=== PATIENT | female | born 1990 | race Caucasian/White ===

== ENCOUNTER 2021-06-18 14:22 | Emergency (ER) | payer OTHER, SELFPAY ==
--- NOTE | 2021-06-18 14:28 | ED.SKABFB ---
HPI - Skin/Abscess/Foreign Bdy General Chief complaint: Skin/Abscess/Foreign Body Stated complaint: Sore on neck Time Seen by Provider: 06/18/21 14:28 Source: patient and RN notes reviewed Mode of arrival: ambulatory Limitations: no limitations History of Present Illness HPI narrative: 31-year-old female presents to the [facility] with complaints of a sore to her neck. Patient states it started 3 days ago to the left posterior neck. Had drains last night and this morning yellow-green pus. No fluctuant center area cleaned. Patient reports that it started draining last night and this morning when she got some yellow pus. Has been washing it and applying peroxide. Patient denies any past medical or history. Related Data Allergies Allergy/AdvReac Type Severity Reaction Status Date / Time No Known Allergies Allergy Verified 06/18/21 14:27 Review of Systems Review of Systems: All systems reviewed & are unremarkable except as noted in HPI and below Constitutional: Constitutional: Reports no additional constitutional complaints, Denies chills and Denies fever(s) Eyes: Eyes: Reports no additional eye complaints ENT: Reports system reviewed and no additional complaints, except as documented Cardiovascular: Cardiovascular: Reports no additional cardiovascular complaints Respiratory: Respiratory: Reports no additional respiratory complaints Gastrointestinal: Gastrointestinal: Reports no additional gastrointestinal complaints Genitourinary: Genitourinary: Reports no additional female genitourinary complaints Musculoskeletal: Musculoskeletal: Reports no additional musculoskeletal complaints Integumentary/Breasts: Skin/Breast: Reports as per HPI Neurologic: Reports system reviewed and no additional complaints, except as documented Psychiatric: Psychiatric: Reports no additional psychiatric complaints Allergic/Immunologic: Allergic/Immunologic: Reports no additional allergic/immunologic complaints PMFSH Comments At the time of my signature, I reviewed and agree with the nursing past medical, surgical, social, and family history. There is no relevant family history pertinent to the patient complaint. Exam Const: General: healthy appearing, no acute distress and alert Nutritional Appearance: well nourished Orientation/consciousness: patient oriented x3 Limitations: no limitations HENMT: Head: normal to inspection Eyes: Conjunctivae: conjunctivae normal Pupils: Equal, round and reactive pupils present Neck: Neck: normal visual inspection, no lymphadenopathy and no meningeal signs Chest: Chest palpation & inspection: normal inspection of the chest Resp: Effort & Inspection: normal respiratory effort Auscultation: clear to auscultation bilaterally Cardio: Rate: regular rate Rhythm: regular rhythm GI: GI Palp: Yes Soft to palpation and No Tenderness to palpation present (GI) : General: Yes no CVA tenderness Back/Spine/Pelvis: Back: no CVA tenderness Skin: Rashes: no rashes Full body images: 1. 2-1/2 cm x 2 and half centimeter red raised area, slightly green center, no fluctuance. Neuro: General: patient oriented x3, moves all extremities, no meningeal signs and no focal motor deficits Speech: normal speech Gait exam (Neuro): Normal gait present Extrem: General: normal to inspection Psych: Appearance: grossly normal and well kempt Mental Status: mental status grossly normal Affect: normal affect Attitude: cooperative Thought content: Yes Normal thought content present Course Course Emergency Course: Discharge instructions reviewed with patient, as well as provided in writing per nursing staff. The instructions also include specific and strict return/GO TO THE ER as well as f/u information. All questions have been answered, and the patient deny any further questions with discharge and discharge plan. Vital Signs Vital signs: Vital Signs Temperature 97.1 F L 06/18/21 14:31 Pulse Rate
[2021-06-18 14:31] VITALS: BP 113/74; PULSE 98; RESP 16; TEMP 36.2; O2SAT 100
== END 2021-06-18 14:50 | disposition home or self-care (01) ==
PROVIDERS: Emergency Provider Nurse Practitioner
DX: L02.11 Cutaneous abscess of neck (principal); L03.221 Cellulitis of neck
CPT/HCPCS: 87070; 87075; 87147; 87186; 87205; 99213; G0463

== ENCOUNTER 2021-10-24 15:16 | Emergency (ER) | payer OTHER, SELFPAY ==
--- NOTE | ~2021-10-24 | XR_ITS ---
EXAMINATION: XR chest 2V EXAM DATE: 10/24/2021 15:57 INDICATION: Sometimes prod cough x 1 month smoker TECHNIQUE: Frontal and lateral projections of the chest obtained and reviewed. There is no prior maria l dy for comparison. FINDINGS: Moderate hyperinflation. The lungs are clear. There are no pleural effusions. The cardiom ediastinal silhouette is within normal limits. There is no pneumothorax suspected. The bones and so ft tissues are unremarkable. IMPRESSION: Moderate hyperinflation. Reviewed, dictated and finalized at location A. SERVICE TECHNICIAN IMPRESSION: Moderate hyperinflation.
[2021-10-24 15:24] VITALS: BP 128/84; PULSE 97; RESP 16; TEMP 36.4; O2SAT 100
--- NOTE | 2021-10-24 15:39 | ED.URI ---
HPI - URI/Sore Throat General Chief Complaint: Upper Respiratory Infection Stated Complaint: Cough Time Seen by Provider: 10/24/21 15:39 Source: patient Mode of arrival: ambulatory Limitations: no limitations History of Present Illness HPI Narrative: 31 yo F presents with c/o cough for 1 month. Last few days having pain to L sided of chest with coughing and breathing. Pt smokes cigarettes, marijuana and vapes. Denies SOB. No recent fever. All systems reviewed and negative except as noted above. Related Data Allergies Allergy/AdvReac Type Severity Reaction Status Date / Time No Known Allergies Allergy Verified 06/18/21 14:27 Review of Systems Review of Systems: CONSTITUTIONAL: Denies fever, chills, or sweats. EYES: Denies visual changes, redness, or discharge. ENT: Denies rhinorrhea, congestion, sore throat, or otalgia. CARDIOVASCULAR: Denies chest pain, palpitations, or edema. RESPIRATORY: Reports cough, left-sided chest pain with deep breathing. GASTROINTESTINAL: Denies abdominal pain, nausea, vomiting, or diarrhea. GENITOURINARY: Denies dysuria or hematuria. SKIN: Denies rash or itching. MUSCULOSKELETAL: Denies back pain, joint pain, or myalgia. NEUROLOGIC: Denies headache, numbness, or weakness. PSYCHIATRIC: Denies anxiety or depression. All other systems reviewed are negative, except as documented in HPI. PMFSH Comments At time of signature, agree with nursing past medical, surgical, social and family history. There is no relevant family history pertinent to the presenting complaint. Exam Narrative: GENERAL: This is a well-nourished, well-developed patient, in no apparent distress. HEAD: normocephalic, atraumatic. EYES: PERRL. Sclera clear/white. Vision is grossly intact. EARS: External ears normal, auditory canals clear and without drainage, TMs normal without perforation. Hearing grossly intact. NOSE: External nose normal with no obvious nasal discharge, nares without redness, no rhinorrhea. THROAT: Mucous membranes moist, posterior pharynx clear. NECK: Neck supple, non-tender without lymphadenopathy, masses or thyromegaly. CARDIOVASCULAR: Regular rate and rhythm without murmurs, gallops, or rubs. RESPIRATORY: Wheezing to left lung vaughan. No respiratory distress. GASTROINTESTINAL: Abdomen soft, non-tender, nondistended. Bowel sounds are active. No hepato-splenomegaly, or palpable masses. No guarding. SKIN: warm, Dry, intact with no suspicious lesions or rash, good texture and turgor. NEURO: awake, alert, and oriented to person, place and time. There were no obvious focal neurologic abnormalities. EXTREMITIES: No joint tenderness, effusion, or edema noted. No calf tenderness. Negative Homans sign bilaterally. BACK: Nontender without deformity. No CVA tenderness. Course Course Emergency Course: \ Level of Care: Express Care Visit Vital Signs Vital signs: Vital Signs Temperature 36.4 C 10/24/21 15:24 Pulse Rate 97 10/24/21 15:24 Respiratory Rate 16 10/24/21 15:24 Blood Pressure 128/84 10/24/21 15:24 Pulse Oximetry 100 10/24/21 15:24 Temperature 36.4 C 10/24/21 15:24 Pulse Rate 97 10/24/21 15:24 Respiratory Rate 16 10/24/21 15:24 Blood Pressure 128/84 10/24/21 15:24 Pulse Oximetry 100 10/24/21 15:24 Reviewed MDM - URI/Sore Throat MDM Narrative Medical decision making narrative: Patient is aware of diagnosis, understands and agrees to treatment plan. Anticipatory guidance given. Patient agrees to follow-up as directed and is aware of reasons to seek care at the emergency department. Portions of this record may have been created with voice recognition software Differential Diagnosis Differential diagnosis: Likely upper respiratory infection, croup, sinusitis, bronchitis and influenza Imaging Data Attestation: I personally reviewed and interpreted this imaging study as follows: My impression: Agree with radiologist Radiologist's impression: EXAMINATION: XR chest 2V EXAM D
== END 2021-10-24 16:25 | disposition home or self-care (01) ==
PROVIDERS: Emergency Provider Nurse Practitioner Family
DX: J20.8 Acute bronchitis due to other specified organisms (principal)
CPT/HCPCS: 71046; 99213; G0463

== ENCOUNTER 2021-10-28 13:21 | Emergency (ER) | payer OTHER, SELFPAY ==
[2021-10-28 13:28] VITALS: BP 119/79; PULSE 106; RESP 16; TEMP 36.9; O2SAT 99
[2021-10-28 13:38] VITALS: BP 119/79; PULSE 106; RESP 16; TEMP 36.9; O2SAT 99
--- NOTE | 2021-10-28 14:17 | ED.SKABFB ---
HPI - Skin/Abscess/Foreign Bdy General Chief complaint: Skin/Abscess/Foreign Body Stated complaint: INFECTED HAIR FOLLICLE Time Seen by Provider: 10/28/21 14:03 Source: patient and RN notes reviewed Mode of arrival: ambulatory Limitations: no limitations History of Present Illness HPI narrative: Patient presents today complaining of a 3 to 4-day history of sore to the right scalp that is crusting. She has tried some medicated shampoo without relief. She currently rates her pain 01/26. MD complaint: lesion Related Data Allergies Allergy/AdvReac Type Severity Reaction Status Date / Time No Known Allergies Allergy Verified 10/28/21 13:44 Review of Systems Review of Systems: CONSTITUTIONAL: Denies body aches, fever, chills, or sweats. EYES: Denies visual changes, redness, or discharge. ENT: Denies rhinorrhea, congestion, sore throat, or otalgia. CARDIOVASCULAR: Denies chest pain, palpitations, or edema. RESPIRATORY: Denies cough or dyspnea. GASTROINTESTINAL: Denies abdominal pain, nausea, vomiting, or diarrhea. GENITOURINARY: Denies dysuria or hematuria. SKIN: Denies rash, itching. + Sores to right scalp MUSCULOSKELETAL: Denies back pain, joint pain, or myalgia. NEUROLOGIC: Denies headache, numbness, tingling, or weakness. PSYCH: Denies depression or anxiety. PMFSH Comments At time of signature, I have reviewed and agree with nursing past medical, surgical, social and family history unless otherwise noted. Please see nursing chart for further information. There is no relevant family history pertinent to the presenting complaint Exam Narrative: GENERAL: Well-appearing, well-nourished, and in no acute distress. HEAD: Normocephalic, atraumatic. EYES: EOMI. No redness or drainage. Conjunctivae normal. ENT: Mucous membranes pink and moist. NECK: Normal AROM. CHEST: No respiratory distress. EXTREMITIES: Normal range of motion. No edema. SKIN: Warm, dry. Capillary refill normal. Normal skin turgor. 1 cm scabbed crusting lesion to the right scalp. NEURO: No focal deficits. Alert and oriented x3. Gait steady. PSYCH: Normal affect. No signs of depression or anxiety. Course Course Emergency Course: Crusting scab was removed from the scalp and purulent discharge was expressed from the abscess. Level of Care: Express Care Visit Vital Signs Vital signs: Vital Signs Temperature 98.5 F 10/28/21 13:28 Pulse Rate 106 H 10/28/21 13:28 Respiratory Rate 16 10/28/21 13:28 Blood Pressure 119/79 10/28/21 13:28 Pulse Oximetry 99 10/28/21 13:28 Temperature 98.5 F 10/28/21 13:38 Pulse Rate 106 H 10/28/21 13:38 Respiratory Rate 16 10/28/21 13:38 Blood Pressure 119/79 10/28/21 13:38 Pulse Oximetry 99 10/28/21 13:38 Reviewed Procedures Abscess I/D scalp: Date of Incision: 10/28/21 Time of Incision: 14:17 Side (if applicable): right (Scalp) Local Anesthetic: none Technique: other (Large scab removed with forceps) Irrigation: No Packing used?: none I&D Results: Pus and Blood MDM - Skin/Abscess/Foreign Bdy Differential Diagnosis Differential diagnosis: Likely abscess of skin or subcutaneous tissue, cellulitis, eczema, impetigo and contact dermatitis Critical Care Time Critical Care Time Critical Care Time: No Discharge Plan Discharge Clinical Impression: Abscess of scalp Patient Disposition: Home, Self-Care Condition: Stable Instructions: Abscess (ED) Additional Instructions: The scab was removed from your abscess and the pus was drained. Continue to apply warm compresses to facilitate drainage. Take Tylenol or ibuprofen for pain. Take the Bactrim as prescribed until gone. Follow-up with your PCP with any concerns. Patient Language: Albanian Prescriptions: New sulfamethoxazole-trimethoprim [Bactrim DS] 800-160 mg tablet 1 tablet PO Q12H 10 Days Qty: 20 RF: 0 No Action methylprednisolone [Medrol (Vidal)] 4 mg tab
== END 2021-10-28 14:25 | disposition home or self-care (01) ==
PROVIDERS: Emergency Provider Nurse Practitioner
DX: L02.811 Cutaneous abscess of head [any part, except face] (principal)
CPT/HCPCS: 99213; G0463

== ENCOUNTER 2022-04-28 09:48 | Emergency (ER) | payer OTHER, SELFPAY ==
[2022-04-28] VITALS (8 sets, daily range): BP systolic 128–139; BP diastolic 83–94; PULSE 87–119; RESP 14–20; TEMP 36.6; O2SAT 92–96
--- NOTE | ~2022-04-28 | XR_ITS ---
XR chest 2V DATE: 04/28/2022 11:16 INDICATION: Shortness of breath TECHNIQUE: PA and lateral views COMPARISON: None FINDINGS: Moderate bilateral hyperinflation. No pulmonary infiltrate or consolidation, pleural effusi on or pulmonary vascular congestion or pneumothorax. Normal heart size. No hilar or mediastinal enlar gement. Included skeletal structures are unremarkable. IMPRESSION: Moderate hyperinflation Reviewed, dictated and finalized at location A. IMPRESSION: Moderate hyperinflation
--- NOTE | 2022-04-28 10:19 | ECG_ITS ---
Measurements Intervals [place] Rate: 94 P: 78 IN: 151 QRS: 77 QRSD: 94 T: 61 QT: 346 QTc: 434 Interpretive Statements SINUS RHYTHM WITH SINUS ARRHYTHMIA NORMAL ECG NO PREVIOUS ECG AVAILABLE FOR COMPARISON Electronically Signed On 04-28-2022 14:48:42 CDT by Jd Marmolejo D.O.
[2022-04-28 11:32] LABS: Basophils Absolute Auto 0.1 K/mm3 (0.0-0.1); Eosinophils Absolute Auto 1.2 K/mm3 (0-0.3); Eosinophils Percent Auto 8.7 % (0-4.4); Hematocrit 36.4 % (37.0-47.0); Hemoglobin 10.7 g/dL (12.0-15.0); Immature Granulocyte Absolute 0.04 K/mm3 (0.00-0.031); Immature Granulocyte Percent A 0.3 % (0-0.5); Lymphocytes Absolute Auto 1.81 K/mm3 (0.9-3.2); Lymphocytes Percent Auto 13.5 % (18.3-44.2); Mean Corpuscular HGB Conc 29.4 g/dl (32-36); Mean Corpuscular Hemoglobin 22.2 pg (26-34); Mean Corpuscular Volume 75.4 fl (80-100); Mean Platelet Volume 9.5 fl (7.4-10.4); Monocytes Absolute Auto 0.7 K/mm3 (0.1-0.6); Monocytes Percent Auto 5.4 % (2.6-8.5); Neutrophils Absolute Auto 9.5 K/mm3 (1.3-6.7); Neutrophils Percent Auto 71.1 % (45.5-73.1); Platelet Count Result 316 k/mm3 (150-375); Red Blood Count 4.83 M/mm3 (4.2-5.4); Red Cell Distribution Width 17.6 % (11.5-14.5); White Blood Count 13.4 K/mm3 (4.5-10.0)
--- NOTE | 2022-04-28 11:33 | ED.SOB ---
HPI - SOB/Dyspnea General Chief Complaint: Shortness of Breath/Dyspnea Stated Complaint: cough, short of breath, wheezing Time Seen by Provider: 04/28/22 11:29 Source: patient Mode of arrival: ambulatory Limitations: no limitations History of Present Illness HPI Narrative: This is a 32 year old female that presents to the ER for worsening shortness of breath since yesterday. Associated with wheezing. Reports she recently had bronchitis and does not feel she fully recovered. She does have a mild persisting cough. Denies fevers. Related Data Allergies Allergy/AdvReac Type Severity Reaction Status Date / Time No Known Allergies Allergy Verified 04/28/22 11:13 Review of Systems Review of Systems: CONSTITUTIONAL: Denies fever CARDIOVASCULAR: Denies chest pain, or edema. RESPIRATORY: Reports cough and dyspnea. All systems reviewed & are unremarkable except as noted in HPI and below PMFSH Past Medical History Medical History (Updated 04/28/22 @ 13:41 by Payton Martínez PA-C) History of drug abuse Social History Social History (Updated 04/28/22 @ 11:35 by Payton Martínez PA-C) Smoking status: Current every day smoker Substance use: current Exam Narrative: GENERAL: Well-appearing, well-nourished, and in no acute distress. HEAD: Normocephalic, atraumatic. EYES: EOMI. ENT: Nares clear, no rhinorrhea or epistaxis. Mucous membranes moist. Oropharynx without tonsillar hypertrophy exudate or other lesions. Bilateral TMs pearly rios non-bulging NECK: Supple. No adenopathy or masses. CHEST: No respiratory distress. Mild scattered wheezes. No rales or rhonchi HEART: Regular rate and rhythm. No murmur heard. Normal peripheral pulses. EXTREMITIES: Normal range of motion. No edema. SKIN: Warm, dry, no rash. NEURO: No focal deficits. Alert and oriented x3. PSYCH: Normal mood and affect Course Vital Signs Vital signs: Vital Signs Temperature 97.9 F 04/28/22 09:54 Pulse Rate 119 H 04/28/22 09:54 Respiratory Rate 14 04/28/22 09:54 Blood Pressure 139/94 H 04/28/22 09:54 Pulse Oximetry 92 04/28/22 09:54 Oxygen Delivery Room Air 04/28/22 09:54 Temperature 97.9 F 04/28/22 09:54 Pulse Rate 87 04/28/22 11:51 Respiratory Rate 18 04/28/22 11:51 Blood Pressure 128/83 04/28/22 11:28 Pulse Oximetry 96 04/28/22 12:26 Oxygen Delivery Room Air 04/28/22 12:26 MDM - SOB/Dyspnea MDM Narrative Medical decision making narrative: Patient presents to the emergency department for shortness of breath and wheezing. Ongoing over the last couple of days. Patient is afebrile and nontoxic-appearing. Oxygen saturation has remained normal on room air. Patient was tachycardic upon arrival, this normalized with a nebulizer treatment. CBC with leukocytosis to 13.4. Also shows microcytic anemia with hemoglobin of 10.7. Metabolic panel without concerning findings. Influenza and COVID screens are negative. Chest x-ray without acute cardiopulmonary abnormality. EKG without concerning changes. Patient and family updated on case findings. She reports relief with a nebulizer treatment. Will be given prescription for albuterol inhaler as needed. She is to follow-up with her primary care doctor. She was given warnings to return to the ER Lab Data Attestation: I reviewed the patient's lab results. Result diagrams: 04/28/22 11:21 04/28/22 11:21 Labs: Lab Results 04/28/22 04/28/22 04/28/22 Range/Units 11:21 11:21 11:38 WBC 13.4 H (4.5-10.0) K/mm3 RBC 4.83 (4.2-5.4) M/mm3 Hgb 10.7 L (12.0-15.0) g/dL Hct 36.4 L (37.0-47.0) % MCV 75.4 L (80-100) fl MCH 22.2 L (26-34) pg MCHC 29.4 L (32-36) g/dl RDW 17.6 H (11.5-14.5) % Plt Count 316 (150-375) k/mm3 MPV 9.5 (7.4-10.4) fl Immature Gran % (Auto) 0.3 (0-0.5) % Neut % (Auto) 71.1 (45.5-73.1) % Lymph % (Auto) 13.5 L (18.3-44.2) % [place] % (Auto) 5.4 (2.
[2022-04-28 11:41] LABS: Anion Gap 12 mmol/L (8-16); Blood Urea Nitrogen 7 mg/dL (7-17); Calcium 8.4 mg/dL (8.4-10.2); Carbon Dioxide 28 mmol/L (22-30); Chloride 101 mmol/L (98-107); Estimated CRCL calculation 95 ml/min; Estimated Glomerular Filt Rate > 60; Glucose 90 mg/dL (65-110); Potassium 4.4 mmol/L (3.4-5.0); Sodium 141 mmol/L (137-145)
[2022-04-28] MEDS: ALBUTEROL SULFATE NEB 2.5 MG/3 ML INH 5 MG INHALATION (11:47)
[2022-04-28] MEDS: IPRATROPIUM BR 0.02% INH SOLN 0.5 MG/2.5 ML VIAL INHALATION (11:47)
[2022-04-28 11:53] LABS: Anisocytosis 1+ (NORMAL); Hypochromasia 2+ (NORMAL); Microcytosis 1+ (NORMAL); Platelet Estimate Adequate (Adequate)
[2022-04-28 12:25] LABS: Influenza A QL RT-PCR Negative (Negative); Influenza B QL RT-PCR Negative (Negative); SARS-CoV-2 RNA PCR Negative
== END 2022-04-28 13:59 | disposition home or self-care (01) ==
PROVIDERS: Physician Assistant; Emergency Provider Emergency Medicine
DX: J20.9 Acute bronchitis, unspecified (principal); Z20.822 Contact with and (suspected) exposure to COVID-19; F17.200 Nicotine dependence, unspecified, uncomplicated
CPT/HCPCS: 36415; 71046; 80048; 85025; 87502; 93005; 94640; 99284; C9803; U0003; U0005

== ENCOUNTER 2022-06-06 10:29 | Emergency (ER) | payer OTHER, SELFPAY ==
[2022-06-06 10:37] VITALS: BP 121/76; PULSE 99; RESP 16; TEMP 36.6; O2SAT 100
--- NOTE | 2022-06-06 11:52 | ED.URI ---
HPI - URI/Sore Throat General Chief Complaint: Upper Respiratory Infection Stated Complaint: cough Time Seen by Provider: 06/06/22 11:41 Source: patient Mode of arrival: ambulatory Limitations: no limitations History of Present Illness HPI Narrative: Patient presents today with a 2-week history of cough with clear/white sputum and shortness of breath with exertion. Patient does smoke. She has been using an [id number] inhaler with mild relief as well as Robitussin with some relief. Related Data Allergies Allergy/AdvReac Type Severity Reaction Status Date / Time No Known Allergies Allergy Verified 04/28/22 11:13 Review of Systems Review of Systems: CONSTITUTIONAL: Denies body aches, fever, chills, or sweats. EYES: Denies visual changes, redness, or discharge. ENT: Denies rhinorrhea, congestion, sore throat, or otalgia. CARDIOVASCULAR: Denies chest pain, palpitations, or edema. RESPIRATORY: + Cough, shortness of breath with exertion GASTROINTESTINAL: Denies abdominal pain, nausea, vomiting, or diarrhea. GENITOURINARY: Denies dysuria or hematuria. SKIN: Denies rash, itching, or wounds. MUSCULOSKELETAL: Denies back pain, joint pain, or myalgia. NEUROLOGIC: Denies headache, numbness, tingling, or weakness. PSYCH: Denies depression or anxiety. [facility] Past Medical History Medical History History of drug abuse Social History Social History Smoking status: Current every day smoker Substance use: current Comments At time of signature, I have reviewed and agree with nursing past medical, surgical, social and family history unless otherwise noted. Please see nursing chart for further information. There is no relevant family history pertinent to the presenting complaint Exam Narrative: GENERAL: Well-appearing, well-nourished, and in no acute distress. HEAD: Normocephalic, atraumatic. EYES: EOMI. No redness or drainage. Conjunctivae normal. ENT: Mucous membranes pink and moist. Nares clear. No rhinorrhea. TMs normal bilaterally. Throat normal. Uvula midline. NECK: Normal AROM. Supple. No lymphadenopathy. CHEST: No respiratory distress. + Expiratory wheezing throughout, otherwise clear HEART: Regular rate and rhythm. No murmur appreciated. Normal peripheral pulses. EXTREMITIES: Normal range of motion. No edema. SKIN: Warm, dry, no rash. Capillary refill normal. Normal skin turgor. NEURO: No focal deficits. Alert and oriented x3. Gait steady. PSYCH: Normal affect. No signs of depression or anxiety. Course Course Level of Care: Express Care Visit Vital Signs Vital signs: Vital Signs Temperature 97.8 F 06/06/22 10:37 Pulse Rate 99 06/06/22 10:37 Respiratory Rate 16 06/06/22 10:37 Blood Pressure 121/76 06/06/22 10:37 Pulse Oximetry 100 06/06/22 10:37 Oxygen Delivery Room Air 06/06/22 10:37 Temperature 97.8 F 06/06/22 10:37 Pulse Rate 99 06/06/22 10:37 Respiratory Rate 16 06/06/22 10:37 Blood Pressure 121/76 06/06/22 10:37 Pulse Oximetry 100 06/06/22 10:37 Oxygen Delivery Room Air 06/06/22 10:37 Reviewed. Pt has been instructed to follow up with her PCP regarding her elevated blood pressure today. MDM - URI/Sore Throat Differential Diagnosis Differential diagnosis: Likely upper respiratory infection, viral infection and bronchitis Critical Care Time Critical Care Time Critical Care Time: No Discharge Plan Discharge Clinical Impression: Bronchitis Patient Disposition: Home, Self-Care Condition: Stable Instructions: Acute Bronchitis (ED) Additional Instructions: Please take the prednisone and use the albuterol inhaler as directed. Follow-up with the PCP to initiate care. Go to the ER immediately if your symptoms worsen. Your blood pressure was elevated above 120/80 today at Urgent Care. This puts you above the thresho
== END 2022-06-06 12:04 | disposition home or self-care (01) ==
PROVIDERS: Emergency Provider Nurse Practitioner
DX: J40 Bronchitis, not specified as acute or chronic (principal); F17.200 Nicotine dependence, unspecified, uncomplicated
CPT/HCPCS: 99213; G0463

== ENCOUNTER 2022-08-15 10:28 | Emergency (ER) | payer OTHER, SELFPAY ==
[2022-08-15 10:44] VITALS: BP 145/89; PULSE 90; RESP 16; TEMP 36.6; O2SAT 99
--- NOTE | 2022-08-15 10:51 | ED.URI ---
HPI - URI/Sore Throat General Stated Complaint: sob Time Seen by Provider: 08/15/22 10:45 Source: patient Mode of arrival: ambulatory Limitations: no limitations History of Present Illness HPI Narrative: Ms. Reid is a 32-year-old female patient presenting to the clinic today with complaints cough, shortness of breath, wheezing x3 months. She reports that she has a history of bronchitis and asthma. MD elicited complaint: cough and other ( Wheezing, shortness of breath) Related Data Allergies Allergy/AdvReac Type Severity Reaction Status Date / Time No Known Allergies Allergy Verified 04/28/22 11:13 Review of Systems Review of Systems: Pertinent positives per HPI. Patient denies any fever, chills, rash, headache, visual changes, dizziness, chest pain, palpitations, nausea, vomiting, diarrhea, constipation, abdominal pain, or any urinary issues. [facility] Past Medical History Medical History History of drug abuse Social History Social History Smoking status: Current every day smoker Substance use: current Comments At the time of my signature, I reviewed and agree with the nursing past medical, surgical, social, and family history. There is no relevant family history pertinent to the patient complaint. Exam Narrative: General: Well-developed, well nourished, in no apparent distress Head: Normocephalic, atraumatic Eyes: Pupils equally round and reactive to light bilaterally, EOM intact, sclera and conjunctive clear, no discharge, lids normal Ears: TMs intact and clear, ear canals clear, no drainage, grossly hearing normal. Nose: Nares patent, clear nasal discharge, no inflammation, no sinus tenderness. Mouth: Oral pharynx without lesions or masses, good dentition, MMM. Neck: Supple, trachea midline, no enlargement of anterior or posterior cervical nodes, no thyroid masses or goiter palpable. Cardio: Regular rate and rhythm, s1 and s2 normal, no murmur appreciated. Resp: Expiratory wheezing over the left lung vaughan, no rhonchi, rales, or rubs Course Course Emergency Course: Portions of this record may have been created with voice recognition software. Level of Care: Express Care Visit Vital Signs Vital signs: Vital Signs Temperature 36.6 C 08/15/22 10:44 Pulse Rate 90 08/15/22 10:44 Respiratory Rate 16 08/15/22 10:44 Blood Pressure 145/89 H 08/15/22 10:44 Pulse Oximetry 99 08/15/22 10:44 Oxygen Delivery Room Air 08/15/22 10:44 Temperature 36.6 C 08/15/22 10:44 Pulse Rate 90 08/15/22 10:44 Respiratory Rate 16 08/15/22 10:44 Blood Pressure 145/89 H 08/15/22 10:44 Pulse Oximetry 99 08/15/22 10:44 Oxygen Delivery Room Air 08/15/22 10:44 Vital signs reviewed MDM - URI/Sore Throat MDM Narrative Medical decision making narrative: at the time of visit patient is resting comfortably on the exam table. I suspect patient has bronchitis. Prescription for azithromycin, albuterol inhaler, and prednisone was sent to the pharmacy. Supportive measures were discussed with the patient she voiced understanding discharge instructions agrees to treatment plan Differential Diagnosis Differential diagnosis: Likely upper respiratory infection, otitis media, sinusitis, viral infection, bronchitis, influenza, pharyngitis and other ( COVID) Discharge Plan Discharge Clinical Impression: Bronchitis Patient Disposition: Home, Self-Care Condition: Stable Instructions: Antibiotic Form, Acute Bronchitis (ED) Additional Instructions: Take prescription medications only as prescribed- prednisone, albuterol inhaler, and azithromycin Stop smoking/vaping Increase fluids and stay well hydrated Tylenol/motrin for pain/fever Flonase and OTC antihistamines as directed Vicks vapor rub to open sinuses Sinus rinses for congestion Cepacol spray,
== END 2022-08-15 10:59 | disposition home or self-care (01) ==
PROVIDERS: Emergency Provider Nurse Practitioner Family
DX: J40 Bronchitis, not specified as acute or chronic (principal); F17.210 Nicotine dependence, cigarettes, uncomplicated
CPT/HCPCS: 99213; G0463

== ENCOUNTER 2022-09-16 11:39 | Emergency (ER) | payer OTHER, SELFPAY ==
[2022-09-16 11:47] VITALS: BP 158/126; PULSE 122; RESP 16; TEMP 36.6; O2SAT 93
--- NOTE | 2022-09-16 11:51 | ED.URI ---
HPI - URI/Sore Throat General Chief Complaint: Upper Respiratory Infection Stated Complaint: cough Time Seen by Provider: 09/16/22 11:53 Source: patient, RN notes reviewed and old records reviewed Mode of arrival: ambulatory Limitations: no limitations History of Present Illness HPI Narrative: 32-year-old female presents to the [facility] with complaints of cough, shortness of breath and wheezing. Lost her inhaler. Has a history of bronchitis and continues to smoke. Does not have a primary care provider. Denies any chest pain or abdominal pain. Denies fevers Related Data Allergies Allergy/AdvReac Type Severity Reaction Status Date / Time No Known Allergies Allergy Verified 09/16/22 11:45 Review of Systems Review of Systems: All systems reviewed & are unremarkable except as noted in HPI and below Constitutional: Constitutional: Reports no additional constitutional complaints Eyes: Eyes: Reports no additional eye complaints ENT: Reports system reviewed and no additional complaints, except as documented Cardiovascular: Cardiovascular: Reports no additional cardiovascular complaints, Denies chest pain and Denies dyspnea Respiratory: Respiratory: Reports as per HPI, Denies chest congestion, Reports cough, Reports dyspnea and Reports wheezing Gastrointestinal: Gastrointestinal: Reports no additional gastrointestinal complaints, Denies abdominal pain, Denies nausea and Denies vomiting Musculoskeletal: Musculoskeletal: Reports no additional musculoskeletal complaints Integumentary/Breasts: Skin/Breast: Reports system reviewed and no additional complaints, except as docu Neurologic: Reports system reviewed and no additional complaints, except as documented Psychiatric: Psychiatric: Reports no additional psychiatric complaints Allergic/Immunologic: Allergic/Immunologic: Reports no additional allergic/immunologic complaints PMFSH Past Medical History Medical History History of drug abuse Social History Social History Smoking status: Current every day smoker Substance use: current Comments At the time of my signature, I reviewed and agree with the nursing past medical, surgical, social, and family history. There is no relevant family history pertinent to the patient complaint. Exam Const: General: cooperative, comfortable, well developed, alert, acute distress mild (Respiratory), ill appearing acutely (mild), uncomfortable and well nourished Nutritional Appearance: well nourished Orientation/consciousness: patient oriented x3 Limitations: no limitations HENMT: Head: normal to inspection Ears: hearing grossly normal bilaterally and external ears normal Face/Nose/Sinus: Normal external nose present, Normal nares present, Normal nasal mucous membranes and turbinates present and normal facial exam Face and sinus: normal facial exam Mouth: Yes Normal oral and palatal mucosa present, Yes lip normal and Yes moist mucous membranes Throat: posterior oropharynx normal and uvula midline Eyes: General: appearance normal, both eyes and all related structures Alignment and Position: alignment normal Periorbital: periorbital findings normal Conjunctivae: conjunctivae normal Pupils: Equal, round and reactive pupils present EOM: EOMs intact bilaterally Neck: Neck: normal visual inspection, full ROM, no lymphadenopathy and no meningeal signs Chest: Chest palpation & inspection: normal inspection of the chest Resp: Effort & Inspection: normal respiratory effort and able to speak in complete sentences Auscultation: no crackles, no rales, no rhonchi and wheezes expiratory wheezes, inspiratory wheezes and throughout Cardio: Rate: tachycardic Rhythm: regular rhythm Back/Spine/Pelvis: Cervical Spine: cervical ROM normal Thoracic/Lumbar Spine: No thoracic spinal tenderness Skin: General skin exam: normal color and n
[2022-09-16] MEDS: predniSONE 20 MG TABLET 40 MG PO (11:59)
[2022-09-16] MEDS: IPRATROPIUM BR 0.02% INH SOLN 0.5 MG/2.5 ML VIAL INHALATION (12:00)
--- NOTE | 2022-09-16 12:01 | PC.NURSE ---
scanner did not work with albuterol. verified and acknowledged manually.
== END 2022-09-16 12:51 | disposition home or self-care (01) ==
PROVIDERS: Emergency Provider Nurse Practitioner
DX: J40 Bronchitis, not specified as acute or chronic (principal); F17.200 Nicotine dependence, unspecified, uncomplicated
CPT/HCPCS: 99213; G0463; J7512

== ENCOUNTER 2022-10-03 09:46 | Emergency (ER) | payer OTHER, SELFPAY ==
[2022-10-03 09:48] VITALS: BP 131/90; PULSE 86; RESP 18; TEMP 36.8; O2SAT 100
--- NOTE | 2022-10-03 10:09 | ED.RECABL ---
HPI - Recheck/Abnormal Lab/Rx General Chief Complaint: Recheck/Abnormal Lab/Rx Stated Complaint: lost my inhaler Time Seen by Provider: 10/03/22 10:09 Source: patient Mode of arrival: ambulatory Limitations: no limitations History of Present Illness HPI narrative: This is a 32-year-old female that presents to the emergency department for medication refill. Reports she has been having trouble with flares of bronchitis over the last year. She recently finished an oral steroid for this. She has misplaced her albuterol inhaler which prompted her to be seen today. Reports she does have an appointment with a lung specialist, but this is not for several weeks. Would like a prescription for albuterol daytime. Denies fever, productive cough, or current shortness of breath. Related Data Allergies Allergy/AdvReac Type Severity Reaction Status Date / Time No Known Allergies Allergy Verified 09/16/22 11:45 Review of Systems Review of Systems: CONSTITUTIONAL: Denies fever RESPIRATORY: Denies cough or dyspnea. All systems reviewed & are unremarkable except as noted in HPI and below PMFSH Past Medical History Medical History History of drug abuse Social History Social History Smoking status: Current every day smoker Substance use: current Exam Narrative: GENERAL: Well-appearing, well-nourished, and in no acute distress. HEAD: Normocephalic, atraumatic. EYES: EOMI. CHEST: No respiratory distress. Very mild, scattered expiratory wheezes. No rales or rhonchi HEART: Regular rate and rhythm. No murmur heard. Normal peripheral pulses. EXTREMITIES: Normal range of motion. No edema. SKIN: Warm, dry, no rash. NEURO: No focal deficits. Alert and oriented x3. PSYCH: Normal mood and affect Course Vital Signs Vital signs: Vital Signs Temperature 98.2 F 10/03/22 09:48 Pulse Rate 86 10/03/22 09:48 Respiratory Rate 18 10/03/22 09:48 Blood Pressure 131/90 10/03/22 09:48 Pulse Oximetry 100 10/03/22 09:48 Oxygen Delivery Room Air 10/03/22 09:48 Temperature 98.2 F 10/03/22 09:48 Pulse Rate 86 02/15/23 09:48 Respiratory Rate 18 10/03/22 09:48 Blood Pressure 131/90 10/03/22 09:48 Pulse Oximetry 100 10/03/22 09:48 Oxygen Delivery Room Air 10/03/22 09:48 MDM - Recheck/Abnormal Lab/Rx MDM Narrative Medical decision making narrative: Patient presents to the emergency department for a medication refill. Oxygen saturation is 100% on room air. She is afebrile and nontoxic-appearing. Denies any productive cough. She has very mild, scattered wheezes on exam. Will be given refill for her albuterol inhaler and instructed to follow-up with her construction carpenter as scheduled. She was given warnings to return to the ER Differential Diagnosis Differential diagnosis: Likely encounter for medication refill Critical Care Time Critical Care Time Critical Care Time: No Discharge Plan Discharge Clinical Impression: Encounter for medication refill Patient Disposition: Home, Self-Care Condition: Stable Instructions: How to Stop Smoking (ED), Wheezing (ED) Additional Instructions: Return to the emergency department for fever, cough, shortness of breath, or any other concerns Albuterol 2 puffs every 4-6 hours as needed for shortness of breath or wheezing Follow up with the lung doctor as you have scheduled Prescriptions: No Action albuterol sulfate 90 mcg/actuation HFA aerosol inhaler 2 puff inhalation QID PRN (Reason: shortness of breath or wheezing) Qty: 6.7 0RF prednisone 20 mg tablet See Rx Instructions .Route .COMPLEX Qty: 9 0RF Rx Instructions: Take 40 mg daily for 3 days, 20 mg daily for 3 days albuterol sulfate 90 mcg/actuation HFA aerosol inhaler 2 puff inhalation Q4-6H PRN (Reason: shortness of breath or wheezing) 30 Days Qty: 8.5 0RF Foll
== END 2022-10-03 10:22 | disposition home or self-care (01) ==
PROVIDERS: Emergency Provider Physician Assistant
DX: J40 Bronchitis, not specified as acute or chronic (principal); F17.200 Nicotine dependence, unspecified, uncomplicated
CPT/HCPCS: 99281

== ENCOUNTER 2022-11-09 08:59 | Emergency (ER) | payer OTHER, SELFPAY ==
[2022-11-09 09:14] VITALS: BP 147/116; PULSE 115; RESP 16; TEMP 36.8; O2SAT 98
--- NOTE | 2022-11-09 09:30 | ED.URI ---
HPI - URI/Sore Throat General Chief Complaint: Upper Respiratory Infection Stated Complaint: pain and blockage in left ear; dyspnea, bronchitis Time Seen by Provider: 11/09/22 09:30 Source: patient Mode of arrival: ambulatory Limitations: no limitations History of Present Illness HPI Narrative: 32-year-old female presents with complaint of cough, wheezing and chest tightness. Patient reports history of similar episodes the past year and half since having COVID. Patient has had a chest x-ray in the past normal. She states that she has been coming here for breathing treatments and albuterol inhalers. She does not a primary care doctor. States that her boyfriend made her an appointment with a esthetic dermatologist for the end of November but she does the name of the physician. She is speaking in full sentences. No respiratory distress. States that she uses albuterol inhaler every day. Patient or also reports left ear pain for 1 week. States left ear pain has been constant, not getting better but no worsening of pain. Afebrile. All systems reviewed and negative except as noted above. Related Data Allergies Allergy/AdvReac Type Severity Reaction Status Date / Time No Known Allergies Allergy Verified 11/09/22 09:18 Review of Systems Review of Systems: CONSTITUTIONAL: Denies fever, chills, or sweats. EYES: Denies visual changes, redness, or discharge. ENT: Denies rhinorrhea, congestion, sore throat . Reports left ear pain. CARDIOVASCULAR: Denies chest pain, palpitations, or edema. RESPIRATORY: Reports cough, wheezing and dyspnea on exertion. GASTROINTESTINAL: Denies abdominal pain, nausea, vomiting, or diarrhea. GENITOURINARY: Denies dysuria or hematuria. SKIN: Denies rash or itching. MUSCULOSKELETAL: Denies back pain, joint pain, or myalgia. NEUROLOGIC: Denies headache, numbness, or weakness. PSYCHIATRIC: Denies anxiety or depression. All other systems reviewed are negative, except as documented in HPI. [facility] Past Medical History Medical History History of drug abuse Social History Social History Smoking status: Current every day smoker Substance use: current Comments At time of signature, agree with nursing past medical, surgical, social and family history. There is no relevant family history pertinent to the presenting complaint. Exam Narrative: GENERAL: This is a well-nourished, well-developed patient, in no apparent distress. HEAD: normocephalic, atraumatic. EYES: PERRL. Sclera clear/white. Vision is grossly intact. EARS: External ears normal, auditory canals clear and without drainage, right TM normal. unable to evaluate left TM due to hard laxity noted. NOSE: External nose normal with no obvious nasal discharge, nares without redness, no rhinorrhea. THROAT: Mucous membranes moist, posterior pharynx clear. NECK: Neck supple, non-tender without lymphadenopathy, masses or thyromegaly. CARDIOVASCULAR: Regular rate and rhythm without murmurs, gallops, or rubs. RESPIRATORY: wheezing on expiration throughout all lung vaughan. No rales, or rhonchi. SKIN: warm, Dry, intact with no suspicious lesions or rash, good texture and turgor. NEURO: awake, alert, and oriented to person, place and time. There were no obvious focal neurologic abnormalities. EXTREMITIES: No joint tenderness, effusion, or edema noted. Course Course Level of Care: Express Care Visit Reevaluation(s) Reevaluation #1: lungs clear auscultation on improving. Patient reports chest tightness resolved. Vital Signs Vital signs: Vital Signs Temperature 36.8 C 11/09/22 09:14 Pulse Rate 115 H 11/09/22 09:14 Respiratory Rate 16 11/09/22 09:14 Blood Pressure 147/116 H 11/09/22 09:14 Pulse Oximetry 98 11/09/22 09:14 Oxygen Delivery Room Air 11/09/22 09:14 Temperature 36.8 C 11/09/22 09:14 Pulse Rate 115 H 11/09
[2022-11-09] MEDS: IPRATROPIUM BR 0.02% INH SOLN 0.5 MG/2.5 ML VIAL INHALATION (09:46)
[2022-11-09] MEDS: predniSONE 20 MG TABLET 40 MG PO (09:46)
[2022-11-09] MEDS: ALBUTEROL SULFATE NEB 2.5 MG/3 ML INH INHALATION (09:47)
== END 2022-11-09 10:35 | disposition home or self-care (01) ==
PROVIDERS: Emergency Provider Nurse Practitioner Family
DX: J45.901 Unspecified asthma with (acute) exacerbation (principal); H61.22 Impacted cerumen, left ear; F17.200 Nicotine dependence, unspecified, uncomplicated
CPT/HCPCS: 94640; 99213; G0463; J7512

== ENCOUNTER 2023-01-07 08:05 | Emergency (ER) | payer OTHER, SELFPAY ==
--- NOTE | 2023-01-07 08:09 | ED.GENADULT ---
HPI - General Adult General Chief complaint: Asthma Stated complaint: Asthma Time Seen by Provider: 01/07/23 08:10 Source: patient, RN notes reviewed and old records reviewed Mode of arrival: ambulatory Limitations: no limitations History of Present Illness HPI narrative: 32-year-old female presents to the [facility] with coughing and wheezing. Symptoms started last night. Denies fevers, chest pain. No abdominal pain. Patient states that her appointment with a grain elevator worker in November was canceled due to insurance issues. Reports that she has an appointment in January with a grain elevator worker. Currently does not have a primary care provider. Reports since COVID she has had breathing issues. Currently a smoker Onset (ago): hour(s) (12) Severity: mild Associated symptoms: cough Treatments prior to arrival: none Related Data Allergies Allergy/AdvReac Type Severity Reaction Status Date / Time No Known Allergies Allergy Verified 01/07/23 08:16 Review of Systems Review of Systems: All systems reviewed & are unremarkable except as noted in HPI and below Constitutional: Constitutional: Reports no additional constitutional complaints Eyes: Eyes: Reports no additional eye complaints ENT: Reports system reviewed and no additional complaints, except as documented Cardiovascular: Cardiovascular: Reports no additional cardiovascular complaints, Denies chest pain and Denies dyspnea Respiratory: Respiratory: Reports as per HPI, Denies chest congestion, Reports cough and Reports dyspnea Gastrointestinal: Gastrointestinal: Reports no additional gastrointestinal complaints, Denies abdominal pain, Denies nausea and Denies vomiting Musculoskeletal: Musculoskeletal: Reports no additional musculoskeletal complaints Integumentary/Breasts: Skin/Breast: Reports system reviewed and no additional complaints, except as docu Neurologic: Reports system reviewed and no additional complaints, except as documented Psychiatric: Psychiatric: Reports no additional psychiatric complaints Allergic/Immunologic: Allergic/Immunologic: Reports no additional allergic/immunologic complaints [facility] Past Medical History Medical History History of drug abuse Social History Social History Smoking status: Current every day smoker Substance use: current Comments At the time of my signature, I reviewed and agree with the nursing past medical, surgical, social, and family history. There is no relevant family history pertinent to the patient complaint. Exam Const: General: cooperative, healthy appearing, comfortable, no acute distress, well developed, alert and well nourished Nutritional Appearance: well nourished Orientation/consciousness: patient oriented x3 Limitations: no limitations HENMT: Head: normal to inspection Ears: hearing grossly normal bilaterally and external ears normal Face/Nose/Sinus: Normal external nose present, Normal nares present, Normal nasal mucous membranes and turbinates present and normal facial exam Face and sinus: normal facial exam Mouth: Yes Normal oral and palatal mucosa present, Yes lip normal and Yes moist mucous membranes Throat: posterior oropharynx normal and uvula midline Eyes: General: appearance normal, both eyes and all related structures Alignment and Position: alignment normal Periorbital: periorbital findings normal Pupils: Equal, round and reactive pupils present EOM: EOMs intact bilaterally Neck: Neck: normal visual inspection, full ROM, no lymphadenopathy and no meningeal signs Chest: Chest palpation & inspection: normal inspection of the chest Resp: Effort & Inspection: normal respiratory effort and able to speak in complete sentences Auscultation: no crackles, no rales, no rhonchi, wheezes (left lower) and diminished lung sounds bilateral throughout Cardio: Rate: regular rate Rhythm: regular rhyt
[2023-01-07 08:13] VITALS: BP 153/109; PULSE 105; RESP 18; TEMP 36.6; O2SAT 100
[2023-01-07] MEDS: ALBUTEROL SULFATE NEB 2.5 MG/3 ML INH INHALATION (08:21)
[2023-01-07] MEDS: predniSONE 20 MG TABLET 40 MG PO (08:21)
[2023-01-07] MEDS: IPRATROPIUM BR 0.02% INH SOLN 0.5 MG/2.5 ML VIAL INHALATION (08:21)
== END 2023-01-07 08:58 | disposition home or self-care (01) ==
PROVIDERS: Emergency Provider Nurse Practitioner
DX: J40 Bronchitis, not specified as acute or chronic (principal); F17.200 Nicotine dependence, unspecified, uncomplicated
CPT/HCPCS: 94640; 99213; G0463; J7512

== ENCOUNTER 2023-02-23 08:46 | Emergency (ER) | payer OTHER, SELFPAY ==
--- NOTE | 2023-02-23 08:52 | ED.SKABFB ---
HPI - Skin/Abscess/Foreign Bdy General Chief complaint: Skin/Abscess/Foreign Body Stated complaint: Face Swelling Time Seen by Provider: 02/23/23 08:48 Source: patient Mode of arrival: ambulatory Limitations: no limitations History of Present Illness HPI narrative: Patient is a 33-year-old female who presents with left-sided facial swelling after picking bump on head last night. Patient states and immediately started swelling and has just worsened. Patient has used ice and warm compresses along with ibuprofen with no relief. Patient reports skin feels hard and warm and eye is almost swollen shut but denies any vision changes. Denies any difficulty swallowing or pain in jaw. States he had similar episode last year. Related Data Allergies Allergy/AdvReac Type Severity Reaction Status Date / Time No Known Allergies Allergy Verified 02/23/23 08:58 Review of Systems Review of Systems: All systems reviewed & are unremarkable except as noted in HPI and below Constitutional: Constitutional: Denies body ache(s), Denies chills, Denies fatigue, Denies fever(s), Denies headache(s), Denies malaise and Denies weakness Eyes: Eyes: Denies blurry vision, Denies irritation and Denies loss of vision ENT: Denies otalgia, Denies headache(s), Denies nasal discharge, Denies sinus pain and Denies sore throat Cardiovascular: Cardiovascular: Denies chest pain, Denies irregular heart rhythm and Denies dyspnea Respiratory: Respiratory: Denies dyspnea Gastrointestinal: Gastrointestinal: Denies abdominal pain, Denies melena, Denies hematochezia, Denies diarrhea, Denies nausea and Denies vomiting Musculoskeletal: Musculoskeletal: Denies back pain, Denies myalgias and Denies arthralgias Integumentary/Breasts: Skin/Breast: Denies pruritus, Denies rash, Reports skin swelling and Reports wounds Neurologic: Denies headache(s), Denies loss of vision and Denies weakness Psychiatric: Psychiatric: Reports no additional psychiatric complaints Endocrine: Endocrine: Denies fatigue PMFSH Past Medical History Medical History History of drug abuse Social History Social History Smoking status: Current every day smoker Substance use: current Comments At time of signature, agree with nursing past medical, surgical, social and family history. There is no relevant family history pertinent to the presenting complaint. Exam Const: General: cooperative, healthy appearing, comfortable, no acute distress and well nourished Nutritional Appearance: well nourished Orientation/consciousness: patient oriented x3 Limitations: no limitations HENMT: Head: normal to inspection, normocephalic and atraumatic Ears: hearing grossly normal bilaterally, external ears normal, TM's normal bilaterally, EAC's normal and mastoids normal Face/Nose/Sinus: Normal external nose present, normal facial exam, face symmetric and edema (Left-sided face) Face and sinus: normal facial exam and face symmetric Face images: 1. Area of swelling with induration, erythema and warmth. Eyelids with edema, no redness or warmth but still able to open and are nontender to touch. 2. 1x1 cm area with clear drainage Mouth: Yes lip normal Eyes: General: appearance normal, both eyes and all related structures Alignment and Position: alignment normal and position normal Periorbital: periorbital findings normal Eyelids: eyelid abnormality left upper eyelid swelling; nontender and left lower eyelid swelling; nontender Pupils: Equal, round and reactive pupils present EOM: EOMs intact bilaterally Neck: Neck: normal visual inspection, full ROM and supple Chest: Chest palpation & inspection: normal inspection of the chest Resp: Effort & Inspection: normal respiratory effort and able to speak in complete sentences Auscultation: clear to auscultation bilaterally Cardio: Rate: regular rate
[2023-02-23 08:56] VITALS: BP 146/96; PULSE 110; RESP 16; TEMP 37.2; O2SAT 100
[2023-02-23 09:27] VITALS: BP 164/96; PULSE 101; RESP 20; O2SAT 99
== END 2023-02-23 09:27 | disposition home or self-care (01) ==
PROVIDERS: Emergency Provider Nurse Practitioner Family
DX: L03.811 Cellulitis of head [any part, except face] (principal); F17.200 Nicotine dependence, unspecified, uncomplicated
CPT/HCPCS: 99213; G0463

== ENCOUNTER 2023-04-10 11:44 | Emergency (ER) | payer OTHER, SELFPAY ==
[2023-04-10 11:54] VITALS: BP 122/79; PULSE 104; RESP 18; TEMP 37.1; O2SAT 100
--- NOTE | 2023-04-10 12:02 | ED.EAR ---
HPI - Ear Problem General Chief complaint: Ear Stated complaint: SOB/ Right Ear Irritation Time Seen by Provider: 04/10/23 12:00 Source: patient and RN notes reviewed Mode of arrival: ambulatory Limitations: no limitations History of Present Illness HPI Narrative: 33-year-old female presents with concern for right ear pain. Reports pain started 1-1/2-2 weeks ago and has worsened over last 2 days. She reports she had small amount of drainage from the ear over the course of the last 2 weeks. She denies headache, fever. She also requests a refill of her inhaler. Complaint: ear pain Related Data Home Medications Medication Instructions Recorded Confirmed albuterol sulfate 90 mcg/actuation 2 puff inhalation DIRECTED 04/10/23 04/10/23 aerosol inhaler Allergies Allergy/AdvReac Type Severity Reaction Status Date / Time No Known Allergies Allergy Verified 04/10/23 11:51 Review of Systems Review of Systems: CONSTITUTIONAL: Denies malaise, chills, sweats, or fever. EYES: Denies visual changes, redness, or discharge. ENT: Denies rhinorrhea, congestion, sinus pain, and sore throat. Reports right ear pain, redness and swelling behind right ear CARDIOVASCULAR: Denies chest pain, palpitations, or edema. RESPIRATORY: Denies cough. Denies dyspnea. GASTROINTESTINAL: Denies abdominal pain, nausea, vomiting, diarrhea SKIN: Denies rash or itching. MUSCULOSKELETAL: Denies myalgia. NEUROLOGIC: Denies headache. All systems reviewed & are unremarkable except as noted in HPI and below PMFSH Past Medical History Medical History History of drug abuse Social History Social History Smoking status: Current every day smoker Substance use: current Comments At time of signature, agree with nursing past medical, surgical, social and family history. There is no relevant family history pertinent to the presenting complaint Exam Narrative: GENERAL: Well-appearing, well-nourished, and in no acute distress. HEAD: Normocephalic EYES: PERRLA, conjunctivae clear ENT: Nares clear. Mucous membranes moist. TM pearly rios with sharp light reflex bilaterally; right tragal tenderness with mild EAC erythema edema, post auricular erythema, warmth, edema, tenderness without fluctuation noted. Oropharynx not erythematous without lesions. Tonsils not enlarged and without exudate, no drooling, no hoarseness, no trismus, uvula midline. NECK: Supple. No lymphadenopathy CHEST: Clear to auscultation, breath sounds equal. No wheezing, rhonchi, rales, or stridor. No respiratory distress, speaks in full sentences. HEART: Regular rate and rhythm. No murmur heard. SKIN: Warm, dry, no rash. NEURO: Alert and oriented x3. PSYCH: Normal mood and affect Course Course Emergency Course: Patient was advised that it is in her best interest to be transferred to the emergency room for further evaluation and treatment of her symptoms. It was discussed the risks of not getting further evaluation today, patient is unwilling to go the emergency room today. I will treat her to best of my ability with oral antibiotics. She reports she will go to the emergency room tomorrow. Portions of this record may have been created with voice recognition software Level of Care: Express Care Visit Vital Signs Vital signs: Vital Signs Temperature 98.8 F 04/10/23 11:54 Pulse Rate 104 H 04/10/23 11:54 Respiratory Rate 18 04/10/23 11:54 Blood Pressure 122/79 04/10/23 11:54 Pulse Oximetry 100 04/10/23 11:54 Oxygen Delivery Room Air 04/10/23 11:54 Temperature 98.8 F 04/10/23 11:54 Pulse Rate 104 H 04/10/23 11:54 Respiratory Rate 18 04/10/23 11:54 Blood Pressure 122/79 04/10/23 11:54 Pulse Oximetry 100 04/10/23 11:54 Oxygen Delivery Room Air 04/10/23 11:54 Reviewed. Medical Decision Making MDM Narrative Medical dec
== END 2023-04-10 12:10 | disposition home or self-care (01) ==
PROVIDERS: Emergency Provider Nurse Practitioner
DX: H60.11 Cellulitis of right external ear (principal); F17.290 Nicotine dependence, other tobacco product, uncomplicated; J45.909 Unspecified asthma, uncomplicated
CPT/HCPCS: 99213; G0463

== ENCOUNTER 2023-06-10 14:50 | Emergency (ER) | payer OTHER, SELFPAY ==
[2023-06-10 14:59] VITALS: BP 129/82; PULSE 105; RESP 16; TEMP 36.7; O2SAT 100
--- NOTE | 2023-06-10 15:00 | ED.SKABFB ---
HPI - Skin/Abscess/Foreign Bdy General Chief complaint: Eye Problems Stated complaint: left eye red,swollen Time Seen by Provider: 06/10/23 15:00 Source: patient Mode of arrival: ambulatory Limitations: no limitations History of Present Illness HPI narrative: 33 yo F presents with c/o redness and swelling to L eye. Started two days ago as small pimple looking pustule after plucking eyebrows. got progressively worse after popping. Hx of MRSA. afebrile. All systems reviewed and negative except as noted above. Related Data Allergies Allergy/AdvReac Type Severity Reaction Status Date / Time No Known Allergies Allergy Verified 06/10/23 15:02 Review of Systems Review of Systems: CONSTITUTIONAL: Denies fever, chills, or sweats. EYES: Denies visual changes, redness, or discharge. ENT: Denies rhinorrhea, congestion, sore throat, or otalgia. CARDIOVASCULAR: Denies chest pain, palpitations, or edema. RESPIRATORY: Denies cough or dyspnea. GASTROINTESTINAL: Denies abdominal pain, nausea, vomiting, or diarrhea. GENITOURINARY: Denies dysuria or hematuria. SKIN: Denies rash or itching. reports redness, swelling and pain to left eyebrow and around eye. MUSCULOSKELETAL: Denies back pain, joint pain, or myalgia. NEUROLOGIC: Denies headache, numbness, or weakness. PSYCHIATRIC: Denies anxiety or depression. All other systems reviewed are negative, except as documented in HPI. [facility] Past Medical History Medical History History of drug abuse Social History Social History Smoking status: Current every day smoker Substance use: current Comments At time of signature, agree with nursing past medical, surgical, social and family history. There is no relevant family history pertinent to the presenting complaint. Exam Narrative: GENERAL: This is a well-nourished, well-developed patient, in no apparent distress. HEAD: normocephalic, atraumatic. EYES: PERRL. Sclera clear/white. Vision is grossly intact. EARS: External ears normal NOSE: External nose normal NECK: Neck supple, non-tender without lymphadenopathy, masses or thyromegaly. CARDIOVASCULAR: Regular rate and rhythm without murmurs, gallops, or rubs. RESPIRATORY: Clear to auscultation. Breath sounds equal bilaterally. No wheezes, rales, or rhonchi. SKIN: warm, Dry, intact with no suspicious lesions or rash, good texture and turgor. erythema, induration to L eye with yellow crusting like drainage. periorbital swelling, erythema. NEURO: awake, alert, and oriented to person, place and time. There were no obvious focal neurologic abnormalities. EXTREMITIES: No joint tenderness, effusion, or edema noted. Course Course Level of Care: Express Care Visit Vital Signs Vital signs: Vital Signs Temperature 36.7 C 06/10/23 14:59 Pulse Rate 105 H 06/10/23 14:59 Respiratory Rate 16 06/10/23 14:59 Blood Pressure 129/82 06/10/23 14:59 Pulse Oximetry 100 06/10/23 14:59 Oxygen Delivery Room Air 06/10/23 14:59 Temperature 36.7 C 06/10/23 14:59 Pulse Rate 105 H 06/10/23 14:59 Respiratory Rate 16 06/10/23 14:59 Blood Pressure 129/82 06/10/23 14:59 Pulse Oximetry 100 06/10/23 14:59 Oxygen Delivery Room Air 06/10/23 14:59 Reviewed MDM - Skin/Abscess/Foreign Bdy MDM Narrative Medical decision making narrative: Patient is aware of diagnosis, understands and agrees to treatment plan. Anticipatory guidance given. Patient agrees to follow-up as directed and is aware of reasons to seek care at the emergency department. Portions of this record may have been created with voice recognition software Discharge Plan Discharge Clinical Impression: History of methicillin resistant Staphylococcus aureus Cellulitis, periorbital Qualifiers: Laterality: left Qualified Code(s): L03.213 - Periorbital cellulitis Patient Disposition:
== END 2023-06-10 15:14 | disposition home or self-care (01) ==
PROVIDERS: Emergency Provider Nurse Practitioner Family
DX: L03.213 Periorbital cellulitis (principal); Z86.14 Personal history of Methicillin resistant Staphylococcus aureus infection; F17.200 Nicotine dependence, unspecified, uncomplicated
CPT/HCPCS: 99213; G0463